=== PATIENT | male | born 1955 | race Caucasian/White ===

== ENCOUNTER 2020-02-04 15:13 | Outpatient (CLI) | payer MEDICARE, SELFPAY ==
--- NOTE | 2020-02-04 | ECG_ITS ---
Measurements Intervals [place] Rate: 83 P: [place]: 0 QRS: 6 QRSD: 78 T: 53 QT: 363 QTc: 427 Interpretive Statements ATRIAL FIBRILLATION ANTEROSEPTAL INFARCT, AGE INDETERMINATE ABNORMAL ECG Electronically Signed On 02-04-2020 16:08:30 CDT by Rodri More D.O.
--- NOTE | ~2020-02-04 | CT_ITS ---
EXAMINATION: CT brain wo con EXAM DATE: 02/04/2020 16:30 INDICATION: Weakness. TECHNIQUE: Spiral CT of the head was performed without contrast. Axial, coronal and sagittal images were reviewed. The dose-length product (DLP) for this examination was 756.67 mGy-cm. The exposure w as tailored according to patient size, and iterative reconstruction (ASIR) was used as additional dos e reduction technique. There is no prior study for comparison. FINDINGS: There is no acute intraparenchymal hemorrhage. No evidence of intraparenchymal brain mass lesion. No evidence of acute infarction. Please note that initial head CT has limited sensitivity f or small or acute infarctions. There is mild periventricular and subcortical hypodensity, nonspecific but probably related to small vessel ischemic disease. There is mild prominence of the sulci and v entricles related to cerebral atrophy. There is intracranial carotid arteriosclerosis. There are n o extra-axial collections. There is no mass effect or midline shift. The orbits are unremarkable. Soft tissue is unremarkable. The visualized sinuses and mastoid air cells are well aerated. IMPRESSION: 1. No acute intracranial findings. 2. Chronic age related findings. Reviewed, dictated and finalized at location A.
--- NOTE | ~2020-02-04 | US_ITS ---
EXAMINATION: US carotid duplex BI EXAM DATE: 02/04/2020 16:53 INDICATION: Carotid plaque. Weakness. TECHNIQUE: Grayscale, color and pulsed Doppler images of the cervical carotid arteries were obtained . The degree of vessel stenosis is placed in one of the following categories: normal, <50% stenosis, 50-69% stenosis, >=70% stenosis but less than near-occlusion, near-occlusion, or occlusion. Note that percent stenosis relative to normal distal artery lumen diameter is indirectly measured from velocit y measurements as described by Pablo, et al. Radiology 2003; 229:340-346. There is no prior study fo r comparison. FINDINGS: RIGHT SIDE: Right common carotid artery peak systolic velocity (PSV in cm/s): 80 Right bulb/internal carotid artery peak systolic velocity (PSV in cm/s): 70 Right internal carotid artery end diastolic velocity (EDV in cm/s): 26 Right ICA/CCA peak systolic ratio: 0.9 Right external carotid artery peak systolic velocity (PSV in cm/s): 104 Right vertebral artery antegrade flow: yes There is mild carotid bulb plaque. Velocity and Doppler waveforms in the common and internal carotid arteries is normal. LEFT SIDE: Left common carotid artery peak systolic velocity (PSV in cm/s): 83 Left bulb/internal carotid artery peak systolic velocity (PSV in cm/s): 68 Left internal carotid artery end diastolic velocity (EDV in cm/s): 17 Left ICA/CCA peak systolic ratio: 0.8 Left external carotid artery peak systolic velocity (PSV in cm/s): 127 Left vertebral artery antegrade flow: yes There is mild carotid bulb plaque. Velocity and Doppler waveforms in the common and internal carotid arteries is normal. IMPRESSION: 1. Less than 50 percent stenosis in the right internal carotid artery. 2. Less than 50 percent stenosis in the left internal carotid artery. Reviewed, dictated and finalized at location A.
[2020-02-04 16:05] LABS: Blood Urea Nitrogen 17 mg/dL (9-20); Calcium 8.9 mg/dL (8.4-10.2); Carbon Dioxide 27 mmol/L (22-30); Chloride 100 mmol/L (98-107); Estimated Glomerular Filt Rate > 60; Glucose 246 mg/dL (75-110); Sodium 135 mmol/L (137-145)
[2020-02-04 16:25] LABS: INR 1.1; Prothrombin Time 13.5 Seconds (11.1-14.7)
[2020-02-04 16:27] LABS: Partial Thromboplastin Time 26.5 SECONDS (22.3-36.8)
[2020-02-04 16:52] LABS: Hemoglobin A1C 7.9 % (<5.7)
== END 2020-02-04 15:14 | disposition home or self-care (01) ==
PROVIDERS: PCP Family Medicine; Visit Provider Physician Assistant
DX: E11.9 Type 2 diabetes mellitus without complications (principal); R73.01 Impaired fasting glucose; I49.9 Cardiac arrhythmia, unspecified; R53.1 Weakness; I65.23 Occlusion and stenosis of bilateral carotid arteries; R94.31 Abnormal electrocardiogram [ECG] [EKG]
CPT/HCPCS: 36415; 70450; 80048; 83036; 85610; 85730; 93005; 93880

== ENCOUNTER 2020-05-17 01:25 | Outpatient (CLI) | payer MEDICARE, SELFPAY ==
[2020-05-18 03:00] LABS: SARS-CoV-2 RNA PCR Negative
== END 2020-05-17 01:26 | disposition home or self-care (01) ==
LOC: ANHCOVIDDT 01:25
PROVIDERS: PCP Family Medicine; Visit Provider Specialist
DX: Z01.812 Encounter for preprocedural laboratory examination (principal); Z20.828 Contact with and (suspected) exposure to other viral communicable diseases
CPT/HCPCS: 87635; C9803; U0003

== ENCOUNTER 2020-05-19 03:00 | Day surgery (SDC) | payer MEDICARE, SELFPAY ==
[2020-05-18 19:04] VITALS: BMI 47.2
--- NOTE | 2020-05-19 11:00 | ECG_ITS ---
Measurements Intervals [place] Rate: 77 P: [place]: 0 QRS: 11 QRSD: 92 T: 50 QT: 371 QTc: 420 Interpretive Statements ATRIAL FIBRILLATION LOW QRS VOLTAGE IN PRECORDIAL LEADS BORDERLINE R WAVE PROGRESSION, ANTERIOR LEADS BASELINE WANDER- V2 ABNORMAL ECG Electronically Signed On 05-19-2020 11:41:00 INK BLENDER by Rodri More D.O.
[2020-05-19 11:45] VITALS: BP 139/43; PULSE 81; RESP 15; TEMP 36.9; O2SAT 97; BMI 48.6
--- NOTE | 2020-05-19 11:51 | SUR.PREOP ---
Patient arrives accompanied to [facility] room 5. VSS and charted. PIV initiated and labs obtained. Consent sided. Patient updated on plan of care and verbalizes understanding. Will continue to monitor.
[2020-05-19 11:59] LABS: Anion Gap 6 mmol/L (8-16); Blood Urea Nitrogen 14 mg/dL (9-20); Calcium 8.7 mg/dL (8.4-10.2); Carbon Dioxide 28 mmol/L (22-30); Chloride 102 mmol/L (98-107); Estimated CRCL calculation 111 ml/min; Estimated Glomerular Filt Rate > 60; Glucose 127 mg/dL (75-110); Magnesium 2.1 mg/dL (1.6-2.3); Sodium 136 mmol/L (137-145)
--- NOTE | 2020-05-19 13:48 | ECG_ITS ---
Measurements Intervals [place] Rate: 71 P: 56 [place]: 246 QRS: 11 QRSD: 76 T: 32 QT: 379 QTc: 413 Interpretive Statements SINUS RHYTHM WITH FIRST DEGREE AV BLOCK LOW QRS VOLTAGE IN PRECORDIAL LEADS ABNORMAL ECG Electronically Signed On 05-19-2020 14:39:51 SKEIN WINDING OPERATOR by Rodri More D.O.
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
[2020-05-19 14:10] VITALS: BP 114/90; PULSE 71; RESP 22; TEMP 36.5; O2SAT 98
--- NOTE | 2020-05-19 14:12 | WPDCARDPROC ---
Cardiac Cath Procedure Note Date of procedure:: 05/19/20 Performing physician:: Jeison Lu MD Indication:: Persistent atrial fibrillation Brief clinical history:: this is a 65-year-old patient with atrial fibrillation of unknown duration. Following anticoagulation and rate control in the office he is desirous of an attempt at restoring sinus rhythm electrically. Procedure Procedure performed:: DC cardioversion Sedation/Medication given:: sedation provided by the anesthesia service Estimated blood loss:: no blood loss Procedure note:: patient was brought to the postanesthesia care unit in the postabsorptive state. Because of morbid obesity we were performing the study with assistance of anesthesia. He was sedated with propofol and 1 sedated was cardioverted with 200 joules in a synchronized fashion x1 shock with AP paddle position restoring normal sinus rhythm. Findings:: As above Conclusion:: successful uncomplicated DC cardioversion of atrial fibrillation to sinus rhythm using 200 joules x1 shock Jeison Lu MD [facility]
[2020-05-19 14:15] VITALS: BP 125/76; PULSE 69; RESP 19; O2SAT 97
[2020-05-19 14:20] VITALS: BP 121/87; PULSE 65; RESP 22; O2SAT 97
[2020-05-19 14:30] VITALS: BP 134/97; PULSE 76; RESP 21; O2SAT 98
[2020-05-19 14:45] VITALS: BP 119/83; PULSE 80; RESP 17; O2SAT 99
== END 2020-05-19 15:10 | disposition home or self-care (01) ==
PROVIDERS: PCP Family Medicine; Visit Provider Specialist
PROC: 5A2204Z Restoration of Cardiac Rhythm, Single (ICD-10-PCS; principal; 2020-05-19 12:30)
DX: I48.19 Other persistent atrial fibrillation (principal); Z79.01 Long term (current) use of anticoagulants; Z79.84 Long term (current) use of oral hypoglycemic drugs; Z79.82 Long term (current) use of aspirin; I10 Essential (primary) hypertension; E11.9 Type 2 diabetes mellitus without complications; F41.9 Anxiety disorder, unspecified; I69.359 Hemiplegia and hemiparesis following cerebral infarction affecting unspecified side; I87.8 Other specified disorders of veins; F17.210 Nicotine dependence, cigarettes, uncomplicated; E66.01 Morbid (severe) obesity due to excess calories; Z68.42 Body mass index [BMI] 45.0-49.9, adult
CPT/HCPCS: 36415; 80048; 83735; 92960; 93005; J2704; J7040

== ENCOUNTER 2022-05-22 07:23 | Outpatient (CLI) | payer MEDICARE, SELFPAY ==
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
[2022-06-27 17:12] VITALS: BMI 41.8
== END 2022-05-23 06:08 | disposition home or self-care (01) ==
PROVIDERS: PCP Family Medicine; Visit Provider Family Medicine
DX: G47.61 Periodic limb movement disorder (principal); G47.10 Hypersomnia, unspecified
CPT/HCPCS: 95810

== ENCOUNTER → 2023-02-20 14:42 | Outpatient (CLI) | payer MEDICARE, SELFPAY ==
--- NOTE | ~2023-02-20 | XR_ITS ---
EXAM: XR shoulder RT min 2V DATE: 02/20/2023 14:59 HISTORY: M25.511 - Pain in right shoulder . COMPARISON: None available. FINDINGS: Normal mineralization. No fracture or dislocation. No lytic or blastic lesion. Moderate AC joint and mild glenohumeral joint osteoarthritis. Calcific tendinitis of the rotator cuff. Enthesopa thy of the greater tuberosity. No erosion or periosteal change. Soft tissues within normal limits. IMPRESSION: No acute osseous finding in the right shoulder. Reviewed, dictated and finalized at location K.
== END ==
PROVIDERS: PCP Family Medicine; Visit Provider Nurse Practitioner Family
DX: M25.511 Pain in right shoulder (principal)
CPT/HCPCS: 73030

== ENCOUNTER 2023-05-22 13:30 | Outpatient (RCR) | payer MEDICARE, SELFPAY ==
--- NOTE | 2023-03-25 15:17 | OPREHPOC ---
Outpatient Therapy Plan of Care This is a Multidisciplinary Plan of Care that may contain components documented by all disciplines (PT, OT, and ST.) PT Problem 1 PT Problem #1 Knowledge Deficit PT Goal 1 Goal Independent with HEP PT Problem 2 PT Problem #2 Pain PT Goal 1 Goal Report 50% reduction in maximal pain symptoms with sleeping Target Visit 8 PT Problem 3 PT Problem #3 Impaired Range of Motion PT Goal 1 Goal Improve R shoulder flexion ROM to 170 degrees to improve active reach ability Target Visit 8 PT Problem 4 PT Problem #4 Impaired Strength PT Goal 1 Goal Improve R shoulder flexion strength to 4+/5 to improve lifting ability for ADL performance Target Visit 8 PT Goal 2 Goal Improve R shoulder ER strength to 4/5 to improve capsular stability and self care Target Visit 8
--- NOTE | 2023-03-25 15:17 | PTOPEVAL1 ---
Assessment and note entered by Vladimir Joe, PT Evaluation Information Assessment Status Evaluation Diagnosis Rght shoulder pain Onset December 2022 Subjective Information Fell on arm approx 3 months ago. Has increased weakness and increased pain since. He received an X-ray indicating no structural damage but some calcification of RTC muscle. He is getting pain at rest and with activity. Pain is typically in shoulder but occasionally radiates to hand. Denies neck pain or headaches. No Pain in L shoulder. Has been having a lot of trouble sleeping and lifting. He has been taking pain medication for knes which seems to be helping for shoulder. Reported Pain Level Pain Score 6: Self Report Assessment PT Clinical Summary Patient presents with painful arc and decreased functional motion in dominant shoulder. Indications of possible cervical radiculopathy and RTC trauma indicated. He will benefit from skilled therapy to address deficits and improve scapular rhythm, rotator cuff strength, and functional shoulder motion. Plan of Care Interventions Hot Pack/Cold Pack,Manual Therapy,Neuro Re- education,Therapeutic Activities,Therapeutic Exercise PT Services Indicated Yes Treatment Frequency and 2x/week for 4 weeks Duration These treatments will address the objective and functional deficits as defined above. The patient will be advanced safely and appropriately in order for the patient to progress towards his/her prior level of function. Additional exercises will be introduced and as well as a comprehensive home exercise program upon discharge, if needed, ?to ensure carryover of functional gains achieved in the clinic. This treatment plan has been reviewed and agreement upon by the patient.
--- NOTE | 2023-04-15 09:43 | PCPTNOTE ---
Pt cacelled due to another medical appt.
--- NOTE | 2023-04-24 13:33 | OPREHPOC ---
Outpatient Therapy Plan of Care This is a Multidisciplinary Plan of Care that may contain components documented by all disciplines (PT, OT, and ST.) PT Problem 1 PT Problem #1 Knowledge Deficit PT Goal 1 Goal Independent with HEP Progress Partially Met Comment Improved but needs continued strengthening guidance PT Problem 2 PT Problem #2 Pain PT Goal 1 Goal Report 50% reduction in maximal pain symptoms with sleeping Target Visit 8 Progress Partially Met Comment Improved but still relevant PT Problem 3 PT Problem #3 Impaired Range of Motion PT Goal 1 Goal Improve R shoulder flexion ROM to 170 degrees to improve active reach ability Target Visit 8 Progress Partially Met Comment Improved but still lacking PT Problem 4 PT Problem #4 Impaired Strength PT Goal 1 Goal Improve R shoulder flexion strength to 4+/5 to improve lifting ability for ADL performance Target Visit 8 Progress Partially Met Comment No significant improvement at this point. Will be focus moving forward. PT Goal 2 Goal Improve R shoulder ER strength to 4/5 to improve capsular stability and self care Target Visit 8 Progress Partially Met Comment improved from 3+ to 4-. Still lacking in goal.
--- NOTE | 2023-04-24 13:33 | PTOPPROG ---
Assessment and note entered by Vladimir Joe, PT Evaluation Information Assessment Status Progress Diagnosis Right shoulder pain Onset December 2022 Subjective Information Reports that overall he is feeling better.a cortisone injection last week and it has helped substantially with his pain. Has a good understanding of objective expectations and plans to continue to work on shoulder girdle strengthening. Assessment PT Clinical Summary Patient has seen subjective and objective progress . Pain is overall down but still relevant. He has seen improved flexion ROM and external rotation strength which is promising, but still has substantial weakness and decreased functional use of dominant shoulder. Will continue to benefit from skilled therapy to address deficits to maximize functional progress. Plan of Care Interventions Hot Pack/Cold Pack,Manual Therapy,Neuro Re- education,Therapeutic Activities,Therapeutic Exercise PT Services Indicated Yes Treatment Frequency and 2x/week for 4 weeks Duration These treatments will address the objective and functional deficits as defined above. The patient will be advanced safely and appropriately in order for the patient to progress towards his/her prior level of function. Additional exercises will be introduced and as well as a comprehensive home exercise program upon discharge, if needed, ?to ensure carryover of functional gains achieved in the clinic. This treatment plan has been reviewed and agreement upon by the patient.
--- NOTE | 2023-05-22 14:14 | PTOPDC ---
Assessment and note entered by Vladimir Joe, PT Discharge Information Assessment Status Discharge Diagnosis Right shoulder pain Onset December 2022 Subjective Information Reports that overall he is feeling better.a cortisone injection last week and it has helped substantially with his pain. Has a good understanding of objective expectations and plans to continue to work on shoulder girdle strengthening. Reported Pain Level Pain Score 2: Self Report Pain Score 2: Self Report Assessment PT Clinical Summary Patient has met all goals for therapy at this time and is suitable for discharge to [facility] at this time Still showing some weakness in R shoulder and HEP emphasized to address this. Plan of Care PT Services Indicated No
== END 2023-05-27 07:18 | disposition home or self-care (01) ==
LOC: ANHPT 13:30
PROVIDERS: PCP Family Medicine; Visit Provider Nurse Practitioner
DX: M25.511 Pain in right shoulder (principal); M75.81 Other shoulder lesions, right shoulder
CPT/HCPCS: 97014; 97110; 97112; 97140; 97161; 97530; G0283